=== PATIENT | female | born 1945 | race Caucasian/White ===

== ENCOUNTER → 2017-10-21 | Outpatient (CLI) | payer MEDICARE ==
[~2017-10-21] MED LIST: CALC500T76 PO; GABA-549 PO; LOSA-165 PO; PANT40TA65 PO; PER PO; PRAV20TA65 PO
--- NOTE | 2017-10-21 15:56 | RADIOLOGY IMAGING REPORT ---
FACILITY: [facility] PATIENT NAME: RUPALI TORRES : [id number] MR: [id number] V: [id number] EXAM DATE: ORDERING PHYSICIAN: RAÚL ROSA TECHNOLOGIST: Celine Ortiz PROCEDURE:BILATERAL DIGITAL SCREENING MAMMOGRAM WITH CAD ASSISTED INTERPRETATION & 3D TOMOSYNTHESIS COMPARISON:Prior mammograms 10/13/16, 10/08/15, 08/13/14, 08/09/12, 05/22/12, 05/18/11 INDICATIONS:SCREENING FINDINGS: Mildly heterogeneous fibroglandular tissue is seen throughout the breasts. The parenchymal pattern has remained stable allowing for difference in mammographic technique & patient positioning. There is no evidence of malignant appearing mass, malignant appearing calcification or other secondary sign of malignancy in either breast. DIAGNOSTIC CATEGORY 1--NEGATIVE. RECOMMENDATIONS: ROUTINE MAMMOGRAM AND CLINICAL EVALUATION. IMPRESSION: BIRADS 1: Negative. No significant abnormality is seen. Dictated by: Landy Gibbons M.D. on 10/21/2017 at 15:44 Transcribed by: LETY on 10/21/2017 at 15:46 Approved by: Landy Gibbons M.D. on 10/21/2017 at 15:55 [facility]
== END ==
LOC: MAMO 05:55
PROVIDERS: ATTEND Obstetrics & Gynecology
DX: Z12.31 Encounter for screening mammogram for malignant neoplasm of breast (principal)
CPT/HCPCS: 77063; 77067

== ENCOUNTER → 2018-04-25 | Outpatient (CLI) | payer MEDICARE ==
[~2018-04-25] MED LIST changes: +LOSA-44 PO; +PRAV20TA66 PO
[2018-04-25 09:58] LABS: PLATELET COUNT, AUTOMATED 251 K/uL (150-450)
== END ==
LOC: LAB 09:26
PROVIDERS: ATTEND Nurse Practitioner Primary Care
DX: R19.7 Diarrhea, unspecified (principal)
CPT/HCPCS: 36415; 81001; 82040; 82247; 82274; 82310; 82374; 82435; 82565; 82947; 83630; 84075; 84132; 84155; 84295; 84450; 84460; 84520; 85025; 87045; 87177; 87324; 87338; 87449

== ENCOUNTER → 2018-04-28 | Outpatient (CLI) | payer MEDICARE | LOC: LAB 11:30 | PROVIDERS: ATTEND Nurse Practitioner Primary Care | DX: R19.7 Diarrhea, unspecified (principal) | CPT/HCPCS: 36415; 83516; 85651; 86140 ==

== ENCOUNTER → 2018-05-02 | Outpatient (CLI) | payer MEDICARE ==
[~2018-05-02] MED LIST changes: +IOPAMIDOL 76% 75 ML INFUS BTL 75 ML ONE
--- NOTE | 2018-05-02 10:47 | RADIOLOGY IMAGING REPORT ---
FACILITY: [facility] PATIENT NAME: Destini Naidu : 1945 MR: [id number] V: [id number] EXAM DATE: ORDERING PHYSICIAN: RADHA RAINEY TECHNOLOGIST: Location: [facility] Patient: Destini Naidu : 1945 Visit/Account:[id number] Date of Sevice: 05/02/2018 ABDOMEN/PELVIS WITH CONTRAST HISTORY: Left lower quadrant pain, chronic diarrhea since November TECHNIQUE: Following administration of IV contrast contiguous axial images acquired through the abdom en/pelvis. Coronal and sagittal reformatting also performed.Dose Lowering Technique One of the following dose optimization techniques was utilized in the performance of this exam: Autom ated exposure control; adjustment of the mA and/or kV according to the patient's size; or use of an i terative reconstruction technique. Specific details can be referenced in the facility's radiology C T exam operational policy. CONTRAST: 75 mL Isovue-370 COMPARISON: None. FINDINGS: Visualized lung bases: There are groundglass opacities in the dependent portion of both lower lung f ields which may represent dependent changes. There is a small amount of scarring versus atelectasis in the inferior lingula Hepatobiliary: There Is a 1 cm hypoattenuating lesion in the periphery of the posterior right lobe Spleen: Negative. Adrenals: Negative. Pancreas: Negative. Kidneys ureters or bladder: Kidneys appear unremarkable. There is mild bladder wall thickening Genitalia: Hysterectomy GI: There is a small hiatal hernia. There is diverticulosis left-sided colon although no CT evidenc e of acute diverticulitis. In the right lower quadrant there is a curvilinear metallic density which appears to be along the wal l of the loop of ileum. This could represent surgical daniel versus small foreign body Vessels/spaces/nodes: Negative. Bones/soft tissues: There are postsurgical changes at L4 L5 S1 and addition to metallic screws proje cting through the iliac bones and SI joints. There appears to be an old sacral fracture. Also noted is a grade 1 anterolisthesis of L5 with respect S1. There are severe spondylotic changes at L2-3. There is a moderate compression fracture of T12 which was present on a prior CT of the lumbar spine June 22, 2013 Additional findings: None pertinent. IMPRESSION: Groundglass opacities in the dependent portion of both lower lung verma may represent dependent spencer ges although developing infiltrates not totally excluded 1 cm hypoattenuating lesion in the periphery of the posterior right lobe of the liver. Appearance is nonspecific with differential diagnosis including solid masses or focal fatty infiltration. Small hiatal hernia. Diverticulosis left-sided colon although no CT evidence of acute diverticulitis. There is a curvilinear metallic density along the ball the loop of ileum in the right lower quadrant. This could represent surgical daniel versus small foreign body Extensive postoperative and spondylotic changes of the lumbar spine and sacrum Old moderate compression fracture T12 Report Dictated By: Landy Gibbons MD at 05/02/2018 10:19 AM Report E-Signed By: Landy Gibbons MD at 05/02/2018 10:43 AM LOLYN:MELINDA
== END ==
LOC: CT 01:46
PROVIDERS: ATTEND Nurse Practitioner Primary Care
DX: R91.8 Other nonspecific abnormal finding of lung field (principal); K76.9 Liver disease, unspecified; M43.07 Spondylolysis, lumbosacral region; Z98.890 Other specified postprocedural states
CPT/HCPCS: 74177; Q9967

== ENCOUNTER 2018-06-01 02:06 | Day surgery (SDC) | payer MEDICARE ==
[~2018-06-01] VITALS: Ht 160 cm; Wt 54.4 kg
[~2018-06-01 02:06] MED LIST changes: -IOPAMIDOL 76% 75 ML INFUS BTL 75 ML ONE
[2018-06-01] MEDS ORDERED: PROPOFOL EMUL(*) 10MG/ML 20 ML 20 ML ONE ×2 (09:43→11:10)
[2018-06-01 10:23] VITALS: BP 142/86
[2018-06-01] MEDS ORDERED: NORMOSOL R SOLN(*) 1000 ML BAG 1,000 ML IV PRN (10:25)
[2018-06-01] MEDS ORDERED: LIDOCAINE/SOD BICARB 8.4% SYR ID ONE (10:25)
[2018-06-01 11:40] VITALS: BP 129/83
[2018-06-01 12:10] VITALS: BP 143/84
[2018-06-01 12:18] VITALS: BP 148/85
[2018-06-01 12:20] VITALS: BP 146/84
== END 2018-06-01 12:33 | disposition home or self-care (01) ==
LOC: OR 02:06
PROVIDERS: ATTEND Internal Medicine Gastroenterology
DX: Z12.11 Encounter for screening for malignant neoplasm of colon (principal); K44.9 Diaphragmatic hernia without obstruction or gangrene; K20.9 Esophagitis, unspecified; K29.70 Gastritis, unspecified, without bleeding
CPT/HCPCS: 00813; 43239; 88305; 88313; 88344; G0121; J2704

== ENCOUNTER 2018-11-02 12:59 | Emergency (ER) | payer MEDICARE ==
[~2018-11-02 12:59] MED LIST changes: +TRIA15CR40 TP
--- NOTE | 2018-11-02 13:02 | ER Report ---
History and Physical Time Seen By MD: 13:01 HPI/ROS CHIEF COMPLAINT: Left lower leg swelling and pain HISTORY OF PRESENT ILLNESS: Patient is a 73-year-old female who presents to the emergency department for evaluation of left lower extremity pain and some swelling. She has been seen over the past few weeks for a lower extremity rash bilaterally. Today she developed some swelling to her left ankle area that was atraumatic. She did speak with her primary care provider and they were instructed her to come to the emergency department for further evaluation. REVIEW OF SYSTEMS: Respiratory: No cough, no dyspnea. Cardiovascular: No chest pain, no palpitations. Gastrointestinal: No vomiting, no abdominal pain. Musculoskeletal: No back pain. Allergies: Coded Allergies: succinylcholine (Verified Allergy, Mild, SVT, 12/10/09) Home Meds Active Scripts Triamcinolone Acetonide 0.1% Cr 15 Gm Tube (TRIAMCINOLONE ACETONIDE 0.1% CREAM) 15 Gm Cream..g., 1 EDVIN TP BID PRN for RASH, #1 TUBE 2 Refills Apply to rash on legs. Can use for maximum of 2 weeks. Prov:RADHA RAINEY DNP, NAILER OPERATOR-BC 10/20/18 Gabapentin (GABAPENTIN) 300 Mg Capsule, 600 MG PO BID for 90 Days, #360 CAPSULE 4 Refills Prov:RAÚL ORSA MD 11/10/17 Pravastatin Sodium (PRAVASTATIN SODIUM) 20 Mg Tablet, 20 MG PO QDAY for 90 Days, #90 TAB 4 Refills Prov:RAÚL ROSA MD 11/10/17 Losartan/Hydrochlorothiazide (HYZAAR 100-25 TABLET) 1 Each Tablet, 1 EACH PO QDAY for 90 Days, #90 TAB 4 Refills Prov:RAÚL ROSA MD 11/10/17 Past Medical/Surgical History Medical history for hyperlipidemia, hypertension, overactive bladder, history of right hip and femur broken hand. History of right knee replacement. Hx Smoking: No Smoking Status: Never Smoker Hx Substance Use Disorder: No Hx Alcohol Use: Yes Constitutional Vital Sign - Last 24 Hours 11/02/18 11/02/18 11/02/18 11/02/18 13:02 13:03 13:29 13:59 Temp 98.0 Pulse 106 92 92 Resp 18 23 18 B/P (MAP) 178/121 178/121 (140) Pulse Ox 90 87 88 11/02/18 14:00 B/P (MAP) 128/88 (101) Physical Exam General Appearance: The patient is alert, has no immediate need for airway protection and no current signs of toxicity. Eyes: Pupils equal and round no injection. Respiratory: Chest is non tender, lungs are clear to auscultation. Cardiac: regular rate and rhythm [ ] Gastrointestinal: Abdomen is soft and non tender, no masses, bowel sounds normal. Extremities have full range of motion and are non tender. Skin: Examination of the skin reveals areas of rebound scaly lesions that are mostly on the anterior shins of both lower extent of these. Patient also has an area to the medial aspect of the left foot around the medial malleolus appears somewhat swollen and leathery but no areas of erythema or redness or warmth. Medical Decision Making Data Points Result Diagram: 11/02/18 1331 11/02/18 1331 Laboratory Hematology Test 11/02/18 13:31 Red Blood Count 3.95 M/uL (4.17-5.56) Mean Corpuscular Volume 104.6 fL (80.0-96.0) Mean Corpuscular Hemoglobin 34.8 pg (26.0-33.0) Mean Corpuscular Hemoglobin Concent 33.3 g/dL (32.0-36.0) Red Cell Distribution Width 12.7 % (11.5-14.5) Mean Platelet Volume 6.6 fL (7.2-11.1) Neutrophils (%) (Auto) 70.9 % (39.4-72.5) Lymphocytes (%) (Auto) 18.3 % (17.6-49.6) Monocytes (%) (Auto) 8.3 % (4.1-12.4) Eosinophils (%) (Auto) 1.0 % (0.4-6.7) Basophils (%) (Auto) 1.5 % (0.3-1.4) Nucleated RBC Relative Count (auto) 0.1 /100WBC Neutrophils # (Auto) 3.2 K/uL (2.0-7.4) Lymphocytes # (Auto) 0.8 K/uL (1.3-3.6) Monocytes # (Auto) 0.4 K/uL (0.3-1.0) Eosinophils # (Auto) 0.0 K/uL (0.0-0.5) Basophils # (Auto) 0.1 K/uL (0.0-0.1) Nucleated RBC Absolute Count (auto) 0.00 K/uL Sodium Level 139 mmol/L (137-145) Potassium Level 4.1 mmol/L (3.5-5.0) Chloride Level 99 mmol/L (98-107) Carbon Dioxide Level 29 mmol/L (22-31) Blood Urea Nitrogen 14 mg/dl (7-18) Creatinine 1.00 mg/dl (0.52-1.04) Glomerular Filtration Rate Calc 54.5 Random Glucose 120 mg/dl (75-110) Calcium Level 9.6 mg/dl (8.4-10.2) Total Bilirubin 0.5 mg/dl (0.2-1.3) Aspartate Amino Transf (AST/SGOT) 28 U/L (0-35) Alanine Aminotransferase (ALT/SGPT) 25 U/L (0-56) Alkaline Phosphatase 89 U/L (0-126) Total Protein 8.0 g/dl (6.3-8.2) Albumin 4.6 g/dl (3.5-5.0) Chemistry Test 11/02/18 13:31 White Blood Count 4.5 k/uL (4.5-11.0) Red Blood Count 3.95 M/uL (4.17-5.56) Hemoglobin 13.7 g/dL (12.0-16.0) Hematocrit 41.3 % (34.0-47.0) Mean Corpuscular Volume 104.6 fL (80.0-96.0) Mean Corpuscular Hemoglobin 34.8 pg (26.0-33.0) Mean Corpuscular Hemoglobin Concent 33.3 g/dL (32.0-36.0) Red Cell Distribution Width 12.7 % (11.5-14.5) Platelet Count 262 K/uL (150-450) Mean Platelet Volume 6.6 fL (7.2-11.1) Neutrophils (%) (Auto) 70.9 % (39.4-72.5) Lymphocytes (%) (Auto) 18.3 % (17.6-49.6) Monocytes (%) (Auto) 8.3 % (4.1-12.4) Eosinophils (%) (Auto) 1.0 % (0.4-6.7) Basophils (%) (Auto) 1.5 % (0.3-1.4) Nucleated RBC Relative Count (auto) 0.1 /100WBC Neutrophils # (Auto) 3.2 K/uL (2.0-7.4) Lymphocytes # (Auto) 0.8 K/uL (1.3-3.6) Monocytes # (Auto) 0.4 K/uL (0.3-1.0) Eosinophils # (Auto) 0.0 K/uL (0.0-0.5) Basophils # (Auto) 0.1 K/uL (0.0-0.1) Nucleated RBC Absolute Count (auto) 0.00 K/uL Glomerular Filtration Rate Calc 54.5 Calcium Level 9.6 mg/dl (8.4-10.2) Total Bilirubin 0.5 mg/dl (0.2-1.3) Aspartate Amino Transf (AST/SGOT) 28 U/L (0-35) Alanine Aminotransferase (ALT/SGPT) 25 U/L (0-56) Alkaline Phosphatase 89 U/L (0-126) Total Protein 8.0 g/dl (6.3-8.2) Albumin 4.6 g/dl (3.5-5.0) EKG/Imaging Imaging Ultrasound negative for DVT ED Course/Re-evaluation ED Course 11/02/2018 1:16:52 pm this time will be to check CBC CMP were also perform ultrasound of the left lower extremity patient does have some swelling however do not feel this represents cellulitis. Decision to Disposition Date: November 02, 2018 Decision to Disposition Time: 13:58 Depart Departure Latest Vital Signs Vital Signs Date Time Temp Pulse Resp B/P (MAP) Pulse Ox O2 Delivery O2 Flow Rate FiO2 11/02/18 14:00 128/88 (101) 11/02/18 13:59 92 18 88 11/02/18 13:02 98.0 Impression: Primary Impression: Leg pain Condition: Improved Disposition: HOME OR SELF-CARE Referrals: RAÚL ROSA MD (PCP) Patient Instructions: Leg Pain (ED) Additional Instructions: Ice to left lower extremity 2-3 times per day for 10-15 minutes each. Wear Daryl wrap for the next few days. Follow up with your primary care provider in 7 days if symptoms do not improve. Problem Qualifiers Primary Impression: Leg pain Laterality: left Qualified Codes: M79.605 - Pain in left leg CLAUDIO RAMESH MD November 02, 2018 13:02
[2018-11-02 13:41] LABS: PLATELET COUNT, AUTOMATED 262 K/uL (150-450)
[2018-11-02 14:00] VITALS: BP 128/88
--- NOTE | 2018-11-02 14:32 | RADIOLOGY IMAGING REPORT ---
FACILITY: [facility] [place] PATIENT NAME: Destini Naidu : 1945 MR: [id number] V: [id number] EXAM DATE: ORDERING PHYSICIAN: CLAUDIO RAMESH TECHNOLOGIST: Location: [facility] Patient: Destini Naidu : 1945 Visit/Account:[id number] Date of Sevice: 11/02/2018 US VENOUS LOWER EXT LT HISTORY: swelling Left lower extremity venous ultrasound COMPARISON STUDIES: none FINDINGS: Grayscale compression, duplex and color Doppler interrogation of the left lower extremity deep veins from common femoral vein to proximal calf was performed. The greater saphenous vein was evaluated usi ng similar technique. Common femoral vein negative Femoral vein negative Deep femoral vein - negative Popliteal vein negative Visualized deep calf veins negative Greater saphenous vein in the proximal thigh negative Popliteal fossa: negative IMPRESSION: 1. Negative left leg for DVT. Report Dictated By: Joaquim Posey MD at 11/02/2018 2:12 PM Report E-Signed By: Joaquim Posey MD at 11/02/2018 2:27 PM WSN:[email or web address]
== END 2018-11-02 14:08 | disposition home or self-care (01) ==
LOC: ER 13:14
DX: M79.662 Pain in left lower leg (principal); M79.89 Other specified soft tissue disorders
CPT/HCPCS: 82040; 82247; 82310; 82374; 82435; 82565; 82947; 84075; 84132; 84155; 84295; 84450; 84460; 84520; 85025; 99284

== ENCOUNTER → 2018-11-13 | Outpatient (CLI) | payer MEDICARE ==
--- NOTE | 2018-11-14 10:19 | RADIOLOGY IMAGING REPORT ---
FACILITY: [facility] [place] PATIENT NAME: RUPALI TORRES : [id number] MR: [id number] V: [id number] EXAM DATE: [id number] ORDERING PHYSICIAN: RAÚL ROSA TECHNOLOGIST: Polina Cormier PROCEDURE: BILATERAL DIGITAL SCREENING MAMMOGRAM WITH CAD ASSISTED INTERPRETATION & 3D TOMOSYNTHESIS REASON FOR STUDY: Screening. COMPARISON: Priors. VIEWS OBTAINED: 2D & 3D full field CC & MLO. BREAST DENSITY: Scattered fibroglandular densities are present in both breasts. MAMMOGRAM FINDINGS: No masses or suspicious calcifications. IMPRESSION: BIRADS 1: Negative. DIAGNOSTIC CATEGORY 1--NEGATIVE. RECOMMENDATIONS: ROUTINE MAMMOGRAM AND CLINICAL EVALUATION IN 1 YEAR. Dictated by: Manfred Pitt M.D. on 11/13/2018 at 15:15 Transcribed by: IZABELA on 11/13/2018 at 15:48 Approved by: Landy Gibbons M.D. on 11/14/2018 at 10:19 [facility]
== END ==
LOC: MAMO 00:53
PROVIDERS: ATTEND Obstetrics & Gynecology
DX: Z12.31 Encounter for screening mammogram for malignant neoplasm of breast (principal)
CPT/HCPCS: 77063; 77067